=== PATIENT | male | born 1990 | race Caucasian/White ===

== ENCOUNTER 2021-04-08 11:25 | Emergency (ER) | payer OTHER, SELFPAY ==
--- NOTE | ~2021-04-08 | XR_ITS ---
EXAMINATION: XR clavicle LT DATE: 04/08/2021 12:34 INDICATION: Left clavicle pain post fall TECHNIQUE: AP and 10 degree cephalad angled AP views of the left clavicle were obtained. COMPARISON: none FINDINGS: There is widening of the acromioclavicular joint space. There is also widening of the coracoclavicula r interval with cephalad subluxation of the lateral head of the clavicle the inferior margin of which lies above the level of the cephalad margin of the acromion consistent with a type III acromioclavic ular joint separation. Glenohumeral joint remains normal. No fracture. Visualized portions of the wilver gs are clear. Soft tissues are unremarkable. IMPRESSION: 1. Type III left acromioclavicular joint separation. Reviewed, dictated and finalized at location A.
[2021-04-08 12:27] VITALS: BP 132/85; PULSE 74; RESP 16; TEMP 36.3; O2SAT 100
--- NOTE | 2021-04-08 13:22 | ED.UPPEXIN ---
HPI - Extremity Injury (Upper) General Stated Complaint: Collar bone Pain Time Seen by Provider: 04/08/21 13:22 Source: patient and RN notes reviewed Mode of arrival: ambulatory Limitations: no limitations History of Present Illness HPI narrative: 30-year-old male presents to the [facility] with concerns of a fractured clavicle. Patient states that he was climbing a tree on Thursday when he fell approximately 10 feet landing on his shoulder. Denies hitting head. No loss of consciousness. No midline tenderness. No chest pain, abdominal pain. Patient states he is just having pain with movement of the left arm at the shoulder. Full range of motion of the elbow and wrist. Positive radial pulse. Sensation intact distal to injury. Capillary refill under 2 seconds distal to injury Related Data Allergies Allergy/AdvReac Type Severity Reaction Status Date / Time No Known Allergies Allergy Verified 04/08/21 13:32 Review of Systems Review of Systems: All systems reviewed & are unremarkable except as noted in HPI and below Constitutional: Constitutional: Reports no additional constitutional complaints, Denies chills and Denies fever(s) Eyes: Eyes: Reports no additional eye complaints ENT: Reports system reviewed and no additional complaints, except as documented Cardiovascular: Cardiovascular: Reports no additional cardiovascular complaints, Denies chest pain and Denies radiating jaw, neck or arm pain Respiratory: Respiratory: Reports no additional respiratory complaints and Denies cough Gastrointestinal: Gastrointestinal: Reports no additional gastrointestinal complaints, Denies abdominal pain, Denies nausea and Denies vomiting Musculoskeletal: Musculoskeletal: Reports as per HPI, Denies myalgias, Reports arthralgias (Left shoulder) and Denies joint swelling Integumentary/Breasts: Skin/Breast: Reports system reviewed and no additional complaints, except as docu Neurologic: Reports system reviewed and no additional complaints, except as documented Psychiatric: Psychiatric: Reports no additional psychiatric complaints Allergic/Immunologic: Allergic/Immunologic: Reports no additional allergic/immunologic complaints [facility] Past Medical History Medical History (Updated 04/08/21 @ 15:04 by Lamar Augustine) No significant medical problems Surgical History Surgical History (Updated 04/08/21 @ 15:04 by Lamar Augustine) No significant past surgical history Social History Social History (Updated 04/08/21 @ 15:05 by Lamar Augustine) Smoking status: Never smoker Substance use: never Living arrangements: with family Occupation/Education: occupation Gender identity (if verbalized by the patient): Male Comments At the time of my signature, I reviewed and agree with the nursing past medical, surgical, social, and family history. There is no relevant family history pertinent to the patient complaint. Exam Const: General: healthy appearing, no acute distress and alert Nutritional Appearance: well nourished Orientation/consciousness: patient oriented x3 Limitations: no limitations HENMT: Head: normal to inspection Ears: external ears normal, TM's normal bilaterally and EAC's normal Eyes: Conjunctivae: conjunctivae normal Pupils: Equal, round and reactive pupils present Neck: Neck: normal visual inspection, no lymphadenopathy and no meningeal signs Chest: Chest palpation & inspection: normal inspection of the chest Resp: Effort & Inspection: normal respiratory effort and no use of accessory muscles Auscultation: clear to auscultation bilaterally, no crackles, no rales, no rhonchi and no wheezes Cardio: Rate: regular rate Rhythm: regular rhythm GI: GI Palp: Yes Soft to palpation and No Tenderness to palpation present (GI) Back/Spine/Pelvis: Back: no CVA tenderness Skin: General skin exam: normal color Wounds: no wounds Neuro: General: patient oriented x3, moves all extremities, no meningeal signs and n
== END 2021-04-08 13:52 | disposition home or self-care (01) ==
PROVIDERS: Emergency Provider Nurse Practitioner
DX: S43.102A Unspecified dislocation of left acromioclavicular joint, initial encounter (principal); W14.XXXA Fall from tree, initial encounter
CPT/HCPCS: 73000; 99203; A4565; G0463